=== PATIENT | female | born 1960 | race Caucasian/White ===

== ENCOUNTER 2018-10-23 19:38 | Inpatient (IN) | payer MEDICARE, OTHER ==
[~2018-10-23] VITALS: Ht 152.4 cm; Wt 88.5 kg
--- NOTE | 2018-10-23 19:38 | NUR ---
rec'd pt in rm 2 via [facility] from [facility] for n/v/d for 1 day
[2018-10-23 20:43] LABS: BASOPHILS # (AUTO) 0.1 (0.0-0.1); BASOPHILS % 0.3 % (0.0-1.0); EOSINOPHILS # (AUTO) 0.1 (0.0-0.4); EOSINOPHILS % 0.7 % (0.0-6.0); HEMATOCRIT 45.9 % (34.2-44.1); HEMOGLOBIN 15.4 g/dL (12.0-16.0); LYMPHOCYTES # (AUTO) 1.8 (1.0-3.2); LYMPHOCYTES % 10.2 % (18.0-39.1); MEAN CORPUSCULAR HEMOGLOBIN 29.1 pg (28-32); MEAN CORPUSCULAR HGB CONC 33.6 g/dL (31-35); MEAN CORPUSCULAR VOLUME 86.8 fL (81-99); MONOCYTES # (AUTO) 1.3 (0.2-0.8); MONOCYTES % 7.5 % (4.4-11.3); NEUTROPHILS # (AUTO) 14.5 (2.1-6.9); NEUTROPHILS % 80.8 % (38.7-80.0); PLATELET COUNT 203 x10e3/uL (140-360); RED BLOOD COUNT 5.29 x10e6/uL (3.6-5.1); RED CELL DISTRIBUTION WIDTH 13.6 % (11.7-14.4)
[2018-10-23] MEDS ORDERED: ONDANSETRON HCL INJ 2MG/ML 2ML 2 MG/ML VIAL IV NR (20:45)
--- NOTE | 2018-10-23 20:58 | Diagnostic Imaging Report ---
EXAMINATION: CHEST 2 VIEWS INDICATION: Pain. ^N/V/D ^[id number] ^2019 COMPARISON: None FINDINGS: TUBES and LINES: None. LUNGS: Patchy density in the left lower lobe concerning for developing pneumonia in the proper clinical setting. PLEURA: No pleural effusion or pneumothorax. HEART AND MEDIASTINUM: The correction is mildly enlarged. Cardiac valve prosthesis. BONES AND SOFT TISSUES: No acute osseous lesion. Soft tissues are unremarkable. UPPER ABDOMEN: No free air under the diaphragm. IMPRESSION: Patchy density in the left lower lobe concerning for developing pneumonia in the proper clinical setting. Signed by: Dr. Elpidio Kim M.D. on 10/23/2018 8:55 PM
[2018-10-23] MEDS ORDERED: PANTOPRAZOLE 40 MG 10ML VIAL IV NR (21:00)
[2018-10-23 21:03] LABS: ALANINE AMINOTRANSFERASE 25 IU/L (0-55); ALBUMIN/GLOBULIN RATIO 0.9 (0.8-2.0); ALKALINE PHOSPHATASE 67 IU/L (40-150); ANION GAP 14.1 mmol/L (8-16); BLOOD UREA NITROGEN 25 mg/dL (7-26); BUN/CREATININE RATIO 32 (6-25); CALCIUM 9.8 mg/dL (8.4-10.2); CARBON DIOXIDE 25 mmol/L (22-29); CHLORIDE 105 mmol/L (98-107); CREATINE KINASE 32 IU/L (29-168); CREATININE, SERUM 0.77 mg/dL (0.57-1.11); EST GLOMERULAR FILTRATION RATE > 60 ML/MIN (60-); GLUCOSE 132 mg/dL (74-118); POTASSIUM 4.1 mmol/L (3.5-5.1); SODIUM 140 mmol/L (136-145)
[2018-10-23] MEDS ORDERED: FAMOTIDINE 20 MG/2 ML VIAL IV NR (21:15)
[2018-10-23 21:20] LABS: BILIRUBIN,URINE NEGATIVE (NEGATIVE); CLARITY,URINE CLEAR (CLEAR); COLOR,URINE YELLOW (YELLOW); KETONES,URINE NEGATIVE (NEGATIVE); LEUKOCYTE ESTERASE ,URINE NEGATIVE (NEGATIVE); NITRITE,URINE NEGATIVE (NEGATIVE); PROTEIN,URINE DIPSTICK 1+ (NEGATIVE); URINE UROBILINOGEN 0.2 mg/dL (0.2 - 1)
[2018-10-23 21:47] LABS: BACTERIA,URINE FEW /HPF; EPITHELIAL CELLS,URINE FEW /LPF; RBC,URINE 0-5 /HPF (0-5); WBC,URINE (MAN) 0-5 /HPF (0-5)
[2018-10-23] MEDS ORDERED: IOPAMIDOL 370 MG/ML 200 ML INFUS..BTL INJ ONE (22:35)
[2018-10-23] MEDS ORDERED: SODIUM CHLORIDE 0.9% 50ML 50 ML ONE (22:35)
--- NOTE | 2018-10-23 23:10 | NUR ---
REPORT RC'D FROM Cynthia BANGURA RN. ASSUMED CARE OF PT AT THIS TIME. PT RESTING QUIETLY ON STRETCHER. NO DISTRESS NOTED. RESP EVEN AND UNLABORED ON O2 2L NC.
--- NOTE | 2018-10-23 23:14 | Diagnostic Imaging Report ---
EXAM: CT Abdomen and Pelvis WITH contrast INDICATION: ^left abdominal pain, n/v/d ^[id number] ^0 ^Y COMPARISON: None. TECHNIQUE: Abdomen and pelvis were scanned utilizing a multidetector helical scanner from the lung base to the pubic symphysis after administration of IV contrast. Coronal and sagittal reformations were obtained. Dose modulation, iterative reconstruction, and/or weight based adjustment of the mA/kV was utilized to reduce the radiation dose to as low as reasonably achievable. Routine protocol was performed. Scan was performed when during portal venous phase. IV CONTRAST: 100L of Isovue-370 ORAL CONTRAST: Water COMPLICATIONS: None RADIATION DOSE: Total DLP: 669.49 mGy*cm Estimated effective dose: (DLP x 0.015 x size factor) mSv CTDIvol has been reviewed. It is below the limits set by the Radiation Protocol Committee (RPC). FINDINGS: LINES and TUBES: None. LOWER THORAX: Mild dependent atelectasis. Vascular congestion. Mildly enlarged heart. Median sternotomy wires. HEPATOBILIARY: No focal hepatic lesions. Mild biliary dilatation, left due to reservoir effect. GALLBLADDER: Surgically absent. SPLEEN: No splenomegaly. Nonspecific subcentimeter hypodensity, could represent a cyst or hemangioma (series 2, image 11). PANCREAS: No focal masses or ductal dilatation. Punctate calcifications of the pancreatic head and uncinate process, representing changes of chronic pancreatitis. Mild edema adjacent to the pancreatic tail and head. ADRENALS: No adrenal nodules KIDNEYS/URETERS: Kidneys enhance symmetrically. No hydronephrosis. Multifocal areas of cortical thinning/scarring. Complex right renal superior pole 1.7 cm cyst. No stones. GI TRACT: No abnormal distention, wall thickening, or evidence of bowel obstruction. Fat stranding around the second portion of the duodenum as well as mucosal hyperenhancement. There is also low rectal mucosal hyperenhancement. Appendix is normal. PELVIC ORGANS/BLADDER: Hysterectomy. Bladder is unremarkable. LYMPH NODES: No lymphadenopathy. VESSELS: There is moderate atherosclerotic disease in the aorta and major arterial branches. PERITONEUM / RETROPERITONEUM: No free air or fluid. Superior retroperitoneal edema. BONES: Unremarkable. SOFT TISSUES: Unremarkable. IMPRESSION: 1. Retroperitoneal edema, surrounding the second portion of the duodenum and pancreatic tail and head, could represent duodenitis versus pancreatitis. Please correlate with lab values. 2. Signs of chronic pancreatitis. 3. Mild lower rectal mucosal hyperenhancement, could represent proctitis in the appropriate clinical setting. 4. Mild biliary dilatation, likely due to postcholecystectomy reservoir effect. 5. Complex right renal superior pole cyst can be further evaluated with nonurgent renal ultrasound. Signed by: Dr. Simón Pedroza MD on 10/23/2018 11:11 PM
[2018-10-23] MEDS ORDERED: TESSALON PERLE100 MG (23:16)
[2018-10-23] MEDS ORDERED: KEPPRA500 MG PO (23:16)
[2018-10-23] MEDS ORDERED: NORCO 5-325 TA1 EACH PO (23:16)
[2018-10-23] MEDS ORDERED: GABAPENTIN400 MG PO (23:16)
[2018-10-23] MEDS ORDERED: ACETAMINOPHEN325 M1 PO (23:16)
[2018-10-23] MEDS ORDERED: BACLOFEN10 MG PO (23:16)
[2018-10-23] MEDS ORDERED: BUSPIRONE HCL5 MG PO (23:16)
[2018-10-23] MEDS ORDERED: DULCOLAX10 MG RC (23:16)
[2018-10-23] MEDS ORDERED: LACTULOSE20 GM/30 M PO (23:16)
[2018-10-23] MEDS ORDERED: DIVALPROEX SOD500 M1 (23:16)
[2018-10-23] MEDS ORDERED: METOPROLOL TART50 MG PO (23:16)
[2018-10-23] MEDS ORDERED: PANTOPRAZOLE SO40 MG PO (23:16)
[2018-10-23] MEDS ORDERED: CITALOPRAM HBR20 MG PO (23:16)
[2018-10-23] MEDS ORDERED: LIPITOR20 MG (23:16)
[2018-10-23] MEDS ORDERED: AMBIEN5 MG PO (23:22)
[2018-10-23] MEDS ORDERED: TRAZODONE HCL50 MG PO (23:22)
[2018-10-23] MEDS ORDERED: COUMADIN3 MG PO (23:22)
[2018-10-23] MEDS: METRONIDAZOLE 500MG/NS 100ML 100 ML IV SCH (23:37)
[2018-10-23 23:50] LABS: AMYLASE 1901 U/L (25-125)
[2018-10-24] VITALS (8 sets, daily range): BP systolic 141–191; BP diastolic 87–100
[2018-10-24] MEDS: LEVOFLOXACIN 500MG/D5W 100ML 100 ML IV SCH ×2 (00:40→22:36)
[2018-10-24] MEDS ORDERED: ALBUTEROL/IPRATROPIUM 3 ML NEB NEB PRN (01:00)
[2018-10-24] MEDS: METRONIDAZOLE 500MG/NS 100ML 100 ML IV SCH ×6 (01:12→23:40)
[2018-10-24 01:17] LABS: LIPASE 7956 U/L (8-78)
[2018-10-24] MEDS: SODIUM CHLORIDE 0.9% 1000ML 1,000 ML IV SCH ×5 (01:17→20:52)
[2018-10-24] MEDS: ONDANSETRON HCL INJ 2MG/ML 2ML 2 MG/ML VIAL IV PRN ×3 (01:47→11:53)
[2018-10-24] MEDS: HYDROMORPHONE 2MG/ML 2 MG/ML ML IV PRN ×5 (01:47→22:03)
--- NOTE | 2018-10-24 07:30 | NUR ---
REC'D PT IN SEMI FOWLERS POSITION, NO S/S OF DISTRESS, FLUIDS RUNNING AT 200 ML/HR. SIDE RAILS UP X2, BED IN LOWEST POSITION, AND CALL LANDEROS WITHIN REACH.
--- NOTE | 2018-10-24 08:03 | NUR ---
H&P cc; abdominal pain HPI 58yoF, PCP , developed abdominal pain, found to have pancreatitis and left lung PNA PMH: HTN, HLD, GERD, neropathy, epilepsy, mechanical mitral valve replacement, Stroke with left hemiparesis, bed-bound, PShx: MV replacement with mechanical valve allergies; see emr fh/Sh;no illicits Meds; see MAr ROS; no f/cp/sob/SIEGEL/vision changes/skin rash/diarrhea. v/s rev'd PE: nad anicteric ns1s2 mod bs soft nd; tender epigastrium no e/t skin dry n. affect a&ox3; valenzuela labs/med revd A/P: 58yoF Acute pancreatitis Left PNA Obesity BMI 34.4 HTn HLD GERD Epilepsy Neuropathy Mechanical Mitral valve PLAN IVF; NPO; recheck lipase hbac/lipids continue coumadin scd Eddi Do MD, Phd.
[2018-10-24] MEDS: PANTOPRAZOLE SOD 40 MG TABEC PO SCH (08:20)
[2018-10-24] MEDS: LEVETIRACETAM 500 MG TAB PO SCH ×2 (08:20→22:03)
[2018-10-24] MEDS: GABAPENTIN 400 MG CAP PO SCH ×3 (08:20→22:03)
[2018-10-24] MEDS: METOPROLOL TARTRATE 50 MG TAB PO SCH ×2 (08:20→16:30)
[2018-10-24 09:06] LABS: INR 2.03; PROTHROMBIN TIME 23.6 seconds (11.9-14.5)
[2018-10-24 10:48] LABS: CHOL/HDL RATIO 3.4 (3.0-3.6)
--- NOTE | 2018-10-24 13:00 | NUR ---
PT IS RESTING QUIETLY WITH EYES OPENED. NO S/S OF DISTRESS. BED IN LOWEST POSITION, SIDE RAILS UP X2, AND CALL LANDEROS WITHIN REACH.
[2018-10-24] MEDS: WARFARIN SOD 3 MG TAB PO SCH (16:30)
--- NOTE | 2018-10-24 18:30 | NUR ---
PT IS RESTING QUIETLY IN BED WITH EYES CLOSED. CHEST IS MOVING UP AND DOWN WITH UNLABORED BREATHING. SIDE RAILS UP X2, BED IN LOWEST POSITION, AND CALL LANDEROS WITHIN REACH
[2018-10-24] MEDS: LABETALOL HCL 5 MG/ML 20ML VIAL IV PRN (20:40)
[2018-10-25] VITALS (8 sets, daily range): BP systolic 157–180; BP diastolic 77–90
[2018-10-25] MEDS: SODIUM CHLORIDE 0.9% 1000ML 1,000 ML IV SCH ×5 (01:52→21:52)
[2018-10-25] MEDS: HYDROMORPHONE 2MG/ML 2 MG/ML ML IV PRN ×5 (02:29→23:02)
[2018-10-25 05:39] LABS: BASOPHILS # (AUTO) 0.1 (0.0-0.1); BASOPHILS % 0.3 % (0.0-1.0); EOSINOPHILS # (AUTO) 0.2 (0.0-0.4); EOSINOPHILS % 0.8 % (0.0-6.0); HEMATOCRIT 46.9 % (34.2-44.1); HEMOGLOBIN 15.1 g/dL (12.0-16.0); LYMPHOCYTES # (AUTO) 1.2 (1.0-3.2); LYMPHOCYTES % 6.7 % (18.0-39.1); MEAN CORPUSCULAR HEMOGLOBIN 28.5 pg (28-32); MEAN CORPUSCULAR HGB CONC 32.2 g/dL (31-35); MEAN CORPUSCULAR VOLUME 88.7 fL (81-99); MONOCYTES % 11.2 % (4.4-11.3); NEUTROPHILS # (AUTO) 14.3 (2.1-6.9); NEUTROPHILS % 80.4 % (38.7-80.0); PLATELET COUNT 163 x10e3/uL (140-360); RED BLOOD COUNT 5.29 x10e6/uL (3.6-5.1); RED CELL DISTRIBUTION WIDTH 14.1 % (11.7-14.4)
[2018-10-25] MEDS: METRONIDAZOLE 500MG/NS 100ML 100 ML IV SCH ×3 (06:03→16:29)
[2018-10-25 06:11] LABS: ALANINE AMINOTRANSFERASE 14 IU/L (0-55); ALBUMIN 2.5 g/dL (3.5-5.0); ALBUMIN/GLOBULIN RATIO 0.8 (0.8-2.0); ALKALINE PHOSPHATASE 60 IU/L (40-150); AMYLASE 335 U/L (25-125); ANION GAP 12.1 mmol/L (8-16); BLOOD UREA NITROGEN 19 mg/dL (7-26); BUN/CREATININE RATIO 28 (6-25); CARBON DIOXIDE 22 mmol/L (22-29); CHLORIDE 107 mmol/L (98-107); CREATININE, SERUM 0.69 mg/dL (0.57-1.11); EST GLOMERULAR FILTRATION RATE > 60 ML/MIN (60-); GLUCOSE 91 mg/dL (74-118); LIPASE 501 U/L (8-78); POTASSIUM 4.1 mmol/L (3.5-5.1); SODIUM 137 mmol/L (136-145)
--- NOTE | 2018-10-25 07:38 | NUR ---
IM- progress note O/N no events ROS; no f/cp/sob/SIEGEL/vision changes/skin rash/diarrhea. v/s rev'd PE: nad anicteric ns1s2 mod bs soft nd; tender epigastrium no e/t skin dry n. affect a&ox3; valenzuela labs/med revd A/P: 58yoF Acute pancreatitis Left PNA Obesity BMI 34.4 HTn HLD GERD Epilepsy Neuropathy Mechanical Mitral valve PLAN IVF; NPO; recheck lipase hbac/lipids continue coumadin scd 5/ lipase much better; control BP; CLD. Eddi Do MD, Phd.
[2018-10-25] MEDS: LEVETIRACETAM 500 MG TAB PO SCH ×2 (08:03→21:49)
[2018-10-25] MEDS: PANTOPRAZOLE SOD 40 MG TABEC PO SCH (08:03)
[2018-10-25] MEDS: METOPROLOL TARTRATE 50 MG TAB PO SCH ×2 (08:03→16:29)
[2018-10-25] MEDS: AMLODIPINE BESYLATE 5 MG TAB PO SCH (08:04)
[2018-10-25] MEDS: GABAPENTIN 400 MG CAP PO SCH ×3 (08:04→21:49)
[2018-10-25] MEDS: ONDANSETRON HCL INJ 2MG/ML 2ML 2 MG/ML VIAL IV PRN ×4 (08:04→23:02)
--- NOTE | 2018-10-25 12:45 | NUR ---
Went to pt's bedside for initial assessment. Pt received pain medication and is asleep. Cm will come back at a later time.
--- NOTE | 2018-10-25 15:35 | NUR ---
CASE MANAGEMENT ASSESSMENT Front End Assistant to bedside to discuss plan of care with patient/family. CM/SW role and care transitions discussed. Anticipated discharge plan discussed along with duration of care. CM/SW discussed patients right to make decisions in care. CM/SW work hours given. Patient lives: at [facility]; stated she has been there for 2 years Admit/Transfer: thru ED Hospital/ER visits since last admit: 0 POA/Emergency contact: sister Sara Aranda [phone] Current/Previous Home Health: none PCP/Follow-up Care: Dr. Mcgrath at [facility] Current/Previous DME: uses wheelchair at [place] Medications (referring to index hospitalization or the first time you were in the hospital) a. Were changes made in your medications when you were in the hospital on [date of index hospitalization]? n/a b. Did you understand the changes? n/a c. Were you able to obtain your new medications right away? n/a d. Were you able to take your medications like the doctor wanted you to? n/a e. Did the hospital give you an accurate, easy to understand list of medications when you left? n/a Scale of 1-10 how comfortable does patient feel with disease management in outpatient setting: Other Services: none Employment Status: unemployed Areas of Concerns: weakness, pancreatitis Referral Needs: none Education Needs: medical management IMM/ESPARZA given and signed (if applicable): IMM letter delivered and explained to pt. Signed copy placed in chart. Copy to pt's transition of care folder Goal for discharge: back to [place] Choice letter signed for [facility] and placed in chart. Copy to pt's transition of care folder. CM/SW left business card at the bedside with contact information. Name and number was also written on the patients whiteboard. Patient verbalized understanding of discussion. CM will follow-up with ongoing discharge and transition of care needs.
[2018-10-25] MEDS: WARFARIN SOD 3 MG TAB PO SCH (16:29)
[2018-10-25] MEDS ORDERED: ACETAMINOPHEN 325 MG TAB PO PRN (16:30)
[2018-10-25] MEDS: LEVOFLOXACIN 500MG/D5W 100ML 100 ML IV SCH (23:02)
[2018-10-26] MEDS: LEVOFLOXACIN 500MG/D5W 100ML 100 ML IV SCH (00:05)
[2018-10-26] MEDS: SODIUM CHLORIDE 0.9% 1000ML 1,000 ML IV SCH ×5 (00:07→17:10)
[2018-10-26] MEDS: METRONIDAZOLE 500MG/NS 100ML 100 ML IV SCH ×4 (00:56→17:10)
[2018-10-26] MEDS: HYDROMORPHONE 2MG/ML 2 MG/ML ML IV PRN (03:05)
[2018-10-26] MEDS: ONDANSETRON HCL INJ 2MG/ML 2ML 2 MG/ML VIAL IV PRN ×2 (03:05→15:01)
[2018-10-26 04:00] VITALS: BP 149/77
--- NOTE | 2018-10-26 05:54 | NUR ---
IM- progress note O/N no events ROS; no f/cp/sob/SIEGEL/vision changes/skin rash/diarrhea. v/s rev'd PE: nad anicteric ns1s2 mod bs soft nd; tender epigastrium no e/t skin dry n. affect a&ox3; valenzuela labs/med revd A/P: 58yoF Acute pancreatitis Left PNA Obesity BMI 34.4 HTn HLD GERD Epilepsy Neuropathy Mechanical Mitral valve PLAN IVF; NPO; recheck lipase hbac/lipids continue coumadin scd 5/ lipase much better; control BP; CLD. 5/2 f/u labs; d/c planning Eddi Do MD, Phd.
[2018-10-26 06:36] LABS: ANION GAP 8.7 mmol/L (8-16); BLOOD UREA NITROGEN 20 mg/dL (7-26); BUN/CREATININE RATIO 34 (6-25); CALCIUM 8.6 mg/dL (8.4-10.2); CARBON DIOXIDE 22 mmol/L (22-29); CHLORIDE 106 mmol/L (98-107); CREATININE, SERUM 0.58 mg/dL (0.57-1.11); EST GLOMERULAR FILTRATION RATE > 60 ML/MIN (60-); GLUCOSE 84 mg/dL (74-118); POTASSIUM 3.7 mmol/L (3.5-5.1); SODIUM 133 mmol/L (136-145)
[2018-10-26] MEDS ORDERED: PROMETHAZINE 12.5MG/ NACL 0.9% 12.5 MG/50 ML BAG IV PRN (06:45)
[2018-10-26] MEDS: METOPROLOL TARTRATE 50 MG TAB PO SCH ×2 (07:42→17:10)
[2018-10-26] MEDS: LEVETIRACETAM 500 MG TAB PO SCH ×2 (07:42→20:21)
[2018-10-26] MEDS: AMLODIPINE BESYLATE 5 MG TAB PO SCH (07:42)
[2018-10-26] MEDS: GABAPENTIN 400 MG CAP PO SCH ×3 (07:42→20:21)
[2018-10-26] MEDS: PANTOPRAZOLE SOD 40 MG TABEC PO SCH (07:42)
[2018-10-26] MEDS: ACETAMINOPHEN/CODEINE 300MG - 30MG TAB PO PRN ×4 (07:42→20:21)
[2018-10-26 07:51] VITALS: BP 177/80
[2018-10-26 11:54] VITALS: BP 193/81
[2018-10-26 15:02] VITALS: BP 188/81
[2018-10-26] MEDS: WARFARIN SOD 3 MG TAB PO SCH (17:00)
[2018-10-26 17:36] LABS: INR 8.37; PROTHROMBIN TIME 70.2 seconds (11.9-14.5)
--- NOTE | 2018-10-26 17:45 | NUR ---
LEFT MESSAGE FOR DR. MICHAELS REGARDING CRITICAL PT/INR. AWAITING CALL BACK.
--- NOTE | 2018-10-26 18:10 | NUR ---
RECEIVED CALL BACK FROM DR. MICHAELS RECEIVED ORDERS TO D/C COUMADIN AND RECHECK PT/INR IN AM.
--- NOTE | 2018-10-26 19:34 | NUR ---
RECEIVED PT IN BED AOX2 .C/O PAIN .RESPIRATIONS ARE EVEN AND UNLABORED IV NS IS RUNNING AT 200 ML/HR .CALL LIGHT WITH IN REACH .CONTINUE TO MONITOR
[2018-10-26 20:00] VITALS: BP 162/74
[2018-10-26 20:24] VITALS: BP 162/74
[2018-10-26] MEDS: ZOLPIDEM TARTRATE 5 MG TAB PO PRN (21:58)
--- NOTE | 2018-10-26 23:15 | NUR ---
Patient received lying in bed. AAO x 2. Patient made comfortable. No complaints of pain. respirations even and non-labored. Fall precautions implemented. Patient instructed to call for assistance when needed. Call light within reach.
[2018-10-27] VITALS (9 sets, daily range): BP systolic 143–176; BP diastolic 69–84
[2018-10-27] MEDS: LABETALOL HCL 5 MG/ML 20ML VIAL IV PRN ×3 (00:20→20:28)
[2018-10-27] MEDS: METRONIDAZOLE 500MG/NS 100ML 100 ML IV SCH ×4 (00:30→17:07)
[2018-10-27] MEDS: SODIUM CHLORIDE 0.9% 1000ML 1,000 ML IV SCH ×5 (03:52→23:52)
[2018-10-27] MEDS: ONDANSETRON HCL INJ 2MG/ML 2ML 2 MG/ML VIAL IV PRN (05:16)
[2018-10-27] MEDS: ACETAMINOPHEN/CODEINE 300MG - 30MG TAB PO PRN ×3 (05:16→20:42)
[2018-10-27 05:51] LABS: INR 9.34; PROTHROMBIN TIME 76.4 seconds (11.9-14.5)
--- NOTE | 2018-10-27 06:13 | NUR ---
Dr. Rio Do notified of critical PT (76.4) and INR ( 9.34). New order received.
[2018-10-27] MEDS ORDERED: PHYTONADIONE 10 MG/ML AMP PO NR (06:30)
--- NOTE | 2018-10-27 07:00 | NUR ---
BEDSIDE SHIFT REPORT RECEIVED FROM NIGHT RN. PT DENIES NEEDS AT THIS TIME.
--- NOTE | 2018-10-27 07:12 | NUR ---
Walking rounds done. Shift report given to oncoming nurse regarding patient's status.
[2018-10-27] MEDS: LEVETIRACETAM 500 MG TAB PO SCH ×2 (08:35→20:28)
[2018-10-27] MEDS: PANTOPRAZOLE SOD 40 MG TABEC PO SCH (08:35)
[2018-10-27] MEDS: GABAPENTIN 400 MG CAP PO SCH ×3 (08:35→20:28)
[2018-10-27] MEDS: AMLODIPINE BESYLATE 5 MG TAB PO SCH (08:36)
[2018-10-27] MEDS: METOPROLOL TARTRATE 50 MG TAB PO SCH ×2 (08:36→17:07)
--- NOTE | 2018-10-27 14:52 | NUR ---
PT ACCEPTED BACK TO [facility] [address] [address] CALL REPORT TO [phone] TO ROOM 160A UNDER DR STACI CHAPMAN. RTF COMPLETED AND GIVEN TO NURSES STATION
[2018-10-27] MEDS ORDERED: MAGNESIUM HYDROXIDE 30 ML UDC PO PRN (19:00)
--- NOTE | 2018-10-27 19:00 | NUR ---
BEDSIDE SHIFT REPORT GIVEN TO [employer] ANALYST RN. PT DENIES NEEDS AT THIS TIME.
[2018-10-27] MEDS: SENNOSIDES 8.6 MG TAB PO SCH (19:20)
[2018-10-27] MEDS: DOCUSATE SODIUM 100 MG CAP PO SCH (19:20)
[2018-10-27] MEDS: ZOLPIDEM TARTRATE 5 MG TAB PO PRN (20:28)
[2018-10-27] MEDS: LEVOFLOXACIN 500MG/D5W 100ML 100 ML IV SCH (22:46)
[2018-10-28 00:05] VITALS: BP 171/90
[2018-10-28] MEDS: METRONIDAZOLE 500MG/NS 100ML 100 ML IV SCH ×2 (00:15→06:44)
[2018-10-28] MEDS: ACETAMINOPHEN/CODEINE 300MG - 30MG TAB PO PRN ×2 (03:16→08:00)
[2018-10-28 04:40] VITALS: BP 153/71
[2018-10-28 06:33] LABS: BASOPHILS % 0.3 % (0.0-1.0); EOSINOPHILS # (AUTO) 0.1 (0.0-0.4); EOSINOPHILS % 0.6 % (0.0-6.0); HEMATOCRIT 33.7 % (34.2-44.1); HEMOGLOBIN 11.1 g/dL (12.0-16.0); LYMPHOCYTES % 8.3 % (18.0-39.1); MEAN CORPUSCULAR HEMOGLOBIN 28.9 pg (28-32); MEAN CORPUSCULAR HGB CONC 32.9 g/dL (31-35); MEAN CORPUSCULAR VOLUME 87.8 fL (81-99); MONOCYTES # (AUTO) 1.5 (0.2-0.8); MONOCYTES % 12.1 % (4.4-11.3); NEUTROPHILS # (AUTO) 9.5 (2.1-6.9); NEUTROPHILS % 77.7 % (38.7-80.0); PLATELET COUNT 170 x10e3/uL (140-360); RED BLOOD COUNT 3.84 x10e6/uL (3.6-5.1); RED CELL DISTRIBUTION WIDTH 14.2 % (11.7-14.4)
[2018-10-28 06:44] LABS: INR 1.29; PROTHROMBIN TIME 16.7 seconds (11.9-14.5)
[2018-10-28] MEDS: SODIUM CHLORIDE 0.9% 1000ML 1,000 ML IV SCH ×2 (06:44→08:25)
[2018-10-28 06:51] LABS: AMYLASE 89 U/L (25-125); ANION GAP 10.1 mmol/L (8-16); BLOOD UREA NITROGEN 14 mg/dL (7-26); BUN/CREATININE RATIO 26 (6-25); CALCIUM 8.4 mg/dL (8.4-10.2); CARBON DIOXIDE 21 mmol/L (22-29); CHLORIDE 110 mmol/L (98-107); CREATININE, SERUM 0.54 mg/dL (0.57-1.11); EST GLOMERULAR FILTRATION RATE > 60 ML/MIN (60-); GLUCOSE 86 mg/dL (74-118); POTASSIUM 3.1 mmol/L (3.5-5.1); SODIUM 138 mmol/L (136-145)
--- NOTE | 2018-10-28 07:00 | NUR ---
The pt. was received from the off-going nurse and reports that she is to go back to her place of residence.
[2018-10-28 07:15] VITALS: BP 168/76
[2018-10-28] MEDS: PANTOPRAZOLE SOD 40 MG TABEC PO SCH (07:30)
[2018-10-28 07:54] LABS: LIPASE 232 U/L (8-78)
[2018-10-28 08:00] VITALS: BP 168/76
[2018-10-28] MEDS ORDERED: POTASSIUM CHLORIDE 20 MEQ TAB CR PO STA (08:07)
[2018-10-28] MEDS: LEVETIRACETAM 500 MG TAB PO SCH (08:24)
[2018-10-28] MEDS: DOCUSATE SODIUM 100 MG CAP PO SCH (08:24)
[2018-10-28] MEDS: AMLODIPINE BESYLATE 5 MG TAB PO SCH (08:25)
[2018-10-28] MEDS: SENNOSIDES 8.6 MG TAB PO SCH (08:25)
[2018-10-28] MEDS: METOPROLOL TARTRATE 50 MG TAB PO SCH (08:25)
[2018-10-28] MEDS: GABAPENTIN 400 MG CAP PO SCH (08:25)
--- NOTE | 2018-10-28 09:31 | NUR ---
The pt. has been transported to [facility] via ambulance pos report to Snow at that facility. The pt. is stable and received 60meq of potassium as requested per Dr. Do for a level of 3.1.
== END 2018-10-28 09:31 | DRG 438 ==
LOC: ER 19:38 → ERHOLD 10-24 01:28 → MED/SURG2 10-24 02:37
PROVIDERS: ADMIT Internal Medicine; ATTEND Internal Medicine
DX: K85.90 Acute pancreatitis without necrosis or infection, unspecified (principal); J18.9 Pneumonia, unspecified organism; I69.354 Hemiplegia and hemiparesis following cerebral infarction affecting left non-dominant side; D72.829 Elevated white blood cell count, unspecified; R11.2 Nausea with vomiting, unspecified; R19.7 Diarrhea, unspecified; K62.89 Other specified diseases of anus and rectum; Z88.1 Allergy status to other antibiotic agents; I10 Essential (primary) hypertension; J44.9 Chronic obstructive pulmonary disease, unspecified; F41.9 Anxiety disorder, unspecified; E78.5 Hyperlipidemia, unspecified; Z90.49 Acquired absence of other specified parts of digestive tract; Z82.49 Family history of ischemic heart disease and other diseases of the circulatory system; G62.9 Polyneuropathy, unspecified; G40.909 Epilepsy, unspecified, not intractable, without status epilepticus; Z95.2 Presence of prosthetic heart valve; Z74.01 Bed confinement status; E66.9 Obesity, unspecified; Z68.34 Body mass index [BMI] 34.0-34.9, adult
CPT/HCPCS: 36415; 71046; 74177; 80048; 80053; 80061; 81001; 82150; 82550; 82553; 83036; 83690; 84484; 85025; 85610; 87040; 93005; 96374; 96375; 97139; 99285; J1956; J2405; J3430; J7030; Q9967

== ENCOUNTER 2019-10-01 02:32 | Emergency (ER) | payer MEDICARE, OTHER ==
[~2019-10-01] VITALS: Ht 152.4 cm; Wt 88.5 kg
[~2019-10-01 02:32] MED LIST: ACETAMINOPHEN325 M1 PO; AMBIEN5 MG PO; BACLOFEN10 MG PO; BUSPIRONE HCL5 MG PO; CITALOPRAM HBR20 MG PO; COUMADIN3 MG PO; DIVALPROEX SOD500 M1; DULCOLAX10 MG RC; GABAPENTIN400 MG PO; KEPPRA500 MG PO; LACTULOSE20 GM/30 M PO; LIPITOR20 MG; METOPROLOL TART50 MG PO; NORCO 5-325 TA1 EACH PO; PANTOPRAZOLE SO40 MG PO; TESSALON PERLE100 MG; TRAZODONE HCL50 MG PO
[2019-10-01 03:16] LABS: BASOPHILS # (AUTO) 0.1 (0.0-0.1); BASOPHILS % 0.5 % (0.0-1.0); EOSINOPHILS # (AUTO) 0.1 (0.0-0.4); EOSINOPHILS % 0.8 % (0.0-6.0); HEMATOCRIT 38.9 % (34.2-44.1); HEMOGLOBIN 12.1 g/dL (12.0-16.0); LYMPHOCYTES # (AUTO) 2.5 (1.0-3.2); MEAN CORPUSCULAR HEMOGLOBIN 24.2 pg (28-32); MEAN CORPUSCULAR HGB CONC 31.1 g/dL (31-35); MEAN CORPUSCULAR VOLUME 77.6 fL (81-99); MONOCYTES # (AUTO) 0.6 (0.2-0.8); MONOCYTES % 5.8 % (4.4-11.3); NEUTROPHILS # (AUTO) 7.4 (2.1-6.9); NEUTROPHILS % 69.5 % (38.7-80.0); PLATELET COUNT 262 x10e3/uL (140-360); RED BLOOD COUNT 5.01 x10e6/uL (3.6-5.1)
[2019-10-01 03:30] LABS: ALANINE AMINOTRANSFERASE 28 IU/L (0-55); ALBUMIN 3.7 g/dL (3.5-5.0); ALBUMIN/GLOBULIN RATIO 1.1 (0.8-2.0); ALKALINE PHOSPHATASE 127 IU/L (40-150); ANION GAP 13.1 mmol/L (8-16); BLOOD UREA NITROGEN 18 mg/dL (7-26); BUN/CREATININE RATIO 23 (6-25); CALCIUM 9.5 mg/dL (8.4-10.2); CARBON DIOXIDE 25 mmol/L (22-29); CHLORIDE 106 mmol/L (98-107); CREATINE KINASE 24 IU/L (29-168); EST GLOMERULAR FILTRATION RATE > 60 ML/MIN (60-); GLUCOSE 106 mg/dL (74-118); POTASSIUM 5.1 mmol/L (3.5-5.1); SODIUM 139 mmol/L (136-145)
[2019-10-01 03:35] LABS: AMYLASE 122 U/L (25-125); LIPASE 26 U/L (8-78)
[2019-10-01 03:44] LABS: BILIRUBIN,URINE NEGATIVE (NEGATIVE); CLARITY,URINE CLEAR (CLEAR); COLOR,URINE YELLOW (YELLOW); KETONES,URINE NEGATIVE (NEGATIVE); LEUKOCYTE ESTERASE ,URINE NEGATIVE (NEGATIVE); NITRITE,URINE NEGATIVE (NEGATIVE); PROTEIN,URINE DIPSTICK NEGATIVE (NEGATIVE); URINE UROBILINOGEN 0.2 mg/dL (0.2 - 1)
[2019-10-01 03:51] LABS: BACTERIA,URINE RARE /HPF; EPITHELIAL CELLS,URINE FEW /LPF; RBC,URINE 0-5 /HPF (0-5); TRANSITIONAL EPI CELLS,URINE FEW; WBC,URINE (MAN) 0-5 /HPF (0-5)
--- NOTE | 2019-10-01 04:00 | Diagnostic Imaging Report ---
Abdomen/KUB INDICATION: ^LEFT ABD PAIN ^[id number] ^0335 ^Y COMPARISON: CT abdomen/pelvis 10/23/2018. FINDINGS: Medical Devices: Prosthetic mitral valve is redemonstrated. Visualized median sternotomy wires are intact. Cholecystectomy clips in the right upper quadrant. Bowel: Bowel gas pattern is unremarkable. Large amount of stool from the mid ascending colon to the proximal descending colon. No dilated small bowel loops and pneumatosis. Free air: None Abdominal calcifications: None over the renal shadows or along the expected course of the ureters Organomegaly: None Lung bases: Clear Bones: No focal osseous lesions. IMPRESSION: Large stool burden. Please correlate for signs/symptoms of constipation. No bowel obstruction. Signed by: Dr. Freeman Justice MD on 10/01/2019 3:57 AM
[2019-10-01 04:15] VITALS: BP 117/79
== END 2019-10-01 04:23 ==
LOC: ER 02:32
DX: R10.12 Left upper quadrant pain (principal); K59.00 Constipation, unspecified; I10 Essential (primary) hypertension; F41.9 Anxiety disorder, unspecified; E78.5 Hyperlipidemia, unspecified; I69.854 Hemiplegia and hemiparesis following other cerebrovascular disease affecting left non-dominant side; R13.11 Dysphagia, oral phase; M62.81 Muscle weakness (generalized); R41.841 Cognitive communication deficit
CPT/HCPCS: 36415; 74018; 80053; 81001; 82150; 82550; 82553; 83690; 84484; 85025; 99284

== ENCOUNTER 2020-07-06 16:24 | Emergency (ER) | payer OTHER, MEDICARE ==
[~2020-07-06] VITALS: Ht 152.4 cm; Wt 88.5 kg
[2020-07-06 18:28] LABS: BASOPHILS # (AUTO) 0.1 (0.0-0.1); BASOPHILS % 0.7 % (0.0-1.0); EOSINOPHILS # (AUTO) 0.2 (0.0-0.4); EOSINOPHILS % 2.1 % (0.0-6.0); HEMATOCRIT 38.7 % (34.2-44.1); HEMOGLOBIN 12.1 g/dL (12.0-16.0); LYMPHOCYTES # (AUTO) 1.9 (1.0-3.2); LYMPHOCYTES % 26.4 % (18.0-39.1); MEAN CORPUSCULAR HEMOGLOBIN 26.4 pg (28-32); MEAN CORPUSCULAR HGB CONC 31.3 g/dL (31-35); MEAN CORPUSCULAR VOLUME 84.5 fL (81-99); MONOCYTES # (AUTO) 0.5 (0.2-0.8); MONOCYTES % 7.4 % (4.4-11.3); NEUTROPHILS # (AUTO) 4.5 (2.1-6.9); NEUTROPHILS % 63.1 % (38.7-80.0); PLATELET COUNT 245 x10e3/uL (140-360); RED BLOOD COUNT 4.58 x10e6/uL (3.6-5.1); RED CELL DISTRIBUTION WIDTH 14.5 % (11.7-14.4)
[2020-07-06 18:37] LABS: ANION GAP 11.5 mmol/L (8-16); BLOOD UREA NITROGEN 16 mg/dL (7-26); BUN/CREATININE RATIO 21 (6-25); CALCIUM 9.3 mg/dL (8.4-10.2); CARBON DIOXIDE 26 mmol/L (22-29); CHLORIDE 106 mmol/L (98-107); CREATININE, SERUM 0.77 mg/dL (0.57-1.11); EST GLOMERULAR FILTRATION RATE > 60 ML/MIN (60-); GLUCOSE 93 mg/dL (74-118); POTASSIUM 4.5 mmol/L (3.5-5.1); SODIUM 139 mmol/L (136-145)
[2020-07-06] MEDS ORDERED: ACETAMINOPHEN/CODEINE 300MG - 30MG TAB PO ONE (19:15)
[2020-07-06 19:28] LABS: INR 2.89; PROTHROMBIN TIME 32.7 seconds (11.9-14.5)
[2020-07-06 19:29] LABS: PARTIAL THROMBOPLASTIN TIME 56.4 seconds (23.8-35.5)
[2020-07-06 20:52] VITALS: BP 126/84
== END 2020-07-06 22:35 ==
LOC: ER 18:18
DX: S61.012A Laceration without foreign body of left thumb without damage to nail, initial encounter (principal); W27.8XXA Contact with other nonpowered hand tool, initial encounter; Y93.E8 Activity, other personal hygiene; Y92.198 Other place in other specified residential institution as the place of occurrence of the external cause; I10 Essential (primary) hypertension; E78.5 Hyperlipidemia, unspecified; J44.9 Chronic obstructive pulmonary disease, unspecified; F41.9 Anxiety disorder, unspecified; F32.9 Major depressive disorder, single episode, unspecified; Z86.73 Personal history of transient ischemic attack (TIA), and cerebral infarction without residual deficits
CPT/HCPCS: 36415; 80048; 85025; 85610; 85730; 99283

== ENCOUNTER → 2021-12-14 | Outpatient (CLI) | payer MEDICARE, OTHER | LOC: CT 08:51 | PROVIDERS: ATTEND Urology | DX: N20.0 Calculus of kidney (principal) | CPT/HCPCS: 74176 ==